=== PATIENT | female | born 1970 | race Caucasian/White ===

== ENCOUNTER 2019-09-16 14:10 | Emergency (ER) | payer OTHER ==
[~2019-09-16] VITALS: Ht 165.1 cm; Wt 83.0 kg
[2019-09-16 14:15] VITALS: BP 117/86
--- NOTE | 2019-09-16 14:19 | NUR ---
PATIENT WHEELCHAIR ASSISTED TO BED 4.
--- NOTE | 2019-09-16 14:39 | NUR ---
49 YEAR OLD FEMALE COMPLAINS OF ABDOMINAL LLQ PAIN X 2 DAYS. PT STATES PAIN IS HORRIBLE. PT DENIES N/V/D, OR ANY CHANGE IN DEFECATION OR URINATION. PT ALSO STATES SOME NUMBNESS ON LEFT LEG STARTED. PT AOX4, BREATHING EVEN AND UNLABORED, SKIN WARM AND DRY. BED IN LOWEST POSITION, LOCKED, BED RAIL UPX1. PT PLACED ON MONITOR, VS STABLE. ERMD AT BEDSIDE PMH - ASTHMA ALLERGIES - NKA
[2019-09-16] MEDS: KETOROLAC 60 MG/2 ML VIAL IM ONE (14:51)
--- NOTE | 2019-09-16 15:45 | NUR ---
pt resting with eyes closed, breathing even and unlabored
[2019-09-16 16:10] VITALS: BP 129/77
--- NOTE | 2019-09-16 16:10 | NUR ---
Patient discharged with v/s stable. Written and verbal after care instructions about urinary tract infection given and explained. Patient alert, oriented and verbalized understanding of instructions. Ambulatory with steady gait. All questions addressed prior to discharge. ID band removed. Patient advised to follow up with PMD. Rx of cipro and motrin given. Patient educated on indication of medication including possible reaction and side effects. Opportunity to ask questions provided and answered.
== END 2019-09-16 16:10 | disposition home or self-care (01) ==
LOC: MED 14:10
DX: N39.0 Urinary tract infection, site not specified (principal); J45.909 Unspecified asthma, uncomplicated
CPT/HCPCS: 81002; 81025; 96372; 99283; J1885